=== PATIENT | male | born 1980 | race Caucasian/White ===

== ENCOUNTER 2021-12-29 14:11 | Outpatient (CLI) | payer OTHER, SELFPAY ==
--- NOTE | ~2021-12-29 | XR_ITS ---
XR chest 2V DATE: 12/29/2021 14:38 INDICATION: Chest pain with deep inspiration TECHNIQUE: 2 views COMPARISON: 10/14/2018 2 view chest FINDINGS: Normal heart size. No hilar or mediastinal enlargement. No pulmonary infiltrate or consol idation, pulmonary vascular congestion or pleural effusion or pneumothorax. IMPRESSION: No active cardiopulmonary disease Reviewed, dictated and finalized at location [facility]
== END 2021-12-29 14:12 ==
PROVIDERS: PCP Family Medicine; Visit Provider Nurse Practitioner
DX: R07.1 Chest pain on breathing (principal)
CPT/HCPCS: 71046